=== PATIENT | female | born 1955 | race Caucasian/White ===

== ENCOUNTER → 2017-04-09 | Outpatient (CLI) | payer MEDICARE ==
[~2017-04-09] MED LIST: ACEBUTOLOL HCL200 MG PO; ACETAMINOPHEN PO; EFFEXOR75 MG PO; INNOPRAN; MULTI-VITAMIN1 TAB PO; TYLENOL PM; TYLOX 5/500 CAP1 CAP PO; VIT B-12 INJ
--- NOTE | ~2017-04-09 | US128 ---
[id number] [facility] [address] [place], [place] [address] [id number] O MR#: [id number] Acc #: [id number] NAME: CHIKIS DOVER : 1955 SEX: F STUDY DATE/TIME: 04/09/2017 12:42 UNIT: [facility] ROOM: STUDY DESCRIPTION: US Thyroid Attending Physician: Robbie Palomino M.D. Referring Physician: Robbie Palomino M.D. Ordering Physician: Robbie Palomino M.D. Primary Care Physician: Robbie Palomino M.D. MEDICAL IMAGING REPORT This report is preliminary unless electronic signature is present EXAM Thyroid ultrasound 04/09/2017 INDICATIONS A 61-year-old female with history of thyroid nodule. Difficulty swallowing for a couple months. TECHNIQUE Sonographic imaging of the thyroid gland was performed compared 04/29/2015. FINDINGS The right thyroid lobe measures 2.7 x 4.2 x 2.5 cm and the left measures 2.2 x 2.3 x 1.7 cm. Thyroid isthmus measures less than 2 mm. There is heterogeneity of both thyroid lobes. On the right, previously documented isoechoic nodule in the jry-ki-psmic pole right thyroid lobe measures a minimum diameter of 9 mm stable to smaller than on the prior study. There is a cystic focus associated with the anterior margin of the nodule unchanged. Heterogeneous area of thyroid tissue in the inferior aspect of the right thyroid lobe simulating a nodule measures up to 2.1 cm when allowing for technical factors. This does not appear appreciably changed. There is also heterogeneity of the left thyroid lobe. The technologist has placed calipers upon an area of heterogeneous thyroid tissue versus a solid nodule measuring up to 16 x 18 mm. When measured in a similar fashion on the prior study. Dimensions were about 16 x 14 mm; therefore, not significantly changed. IMPRESSION 1. Bilateral thyromegaly. Heterogeneous thyroid tissue bilaterally versus small thyroid nodules similar to the prior study for technical factors as described above. 2. No distinct new or enlarging nodules for which FNA is recommend at this time. Dictated by... Chris Acosta M.D. THIS IS AN ELECTRONICALLY VERIFIED REPORT Chris Acosta M.D. at 04/13/2017 7:13 AM Ange TD: 04/12/2017 22:10 JOB #: [id number] MEDICAL IMAGING REPORT Page 1 of 1 COPY
== END | disposition home or self-care (01) ==
LOC: CWCC 12:27
DX: E04.1 Nontoxic single thyroid nodule (principal); E04.9 Nontoxic goiter, unspecified
CPT/HCPCS: 76536